=== PATIENT | female | born 1955 | race Hispanic/Latino ===

== ENCOUNTER → 2018-12-06 | Outpatient (CLI) | payer MEDICARE ==
[~2018-12-06] MED LIST: REGADENOSON 0.4 MG/5 ML SYR IV ONE
--- NOTE | 2018-12-07 18:33 | Myoview Stress Test ---
DATE OF STUDY: 12/06/2018 09:58:00 Stress Test - Treadmill ONLY STRESS SUMMARY: The patient underwent stress testing utilizing Lexiscan under the usual protocol. Baseline heart rate was 67 beats per minute and 88 beats per minute at stress. The patient's blood pressure was 135/82 at rest and decreased to 128/77 at peak stress. The patient into the protocol without any cardiac symptoms. ELECTROCARDIOGRAPHIC STRESS SUMMARY: The patient's 12-lead electrocardiogram showed normal sinus rhythm. There was no ST changes or arrhythmias noted throughout the stress protocol. MYOCARDIAL PERFUSION IMAGING: The patient received technetium-99m sestamibi at rest and stress. Both sets of images were normal. Gated images revealed ejection fraction greater than 70%. CONCLUSION: 1. Normal clinical, hemodynamic, and electrocardiogram stress test. 2. Normal myocardial perfusion imaging. 3. Normal left ventricular function with an estimated ejection fraction greater than 70%. DO KRYSTLA Becker/TRACY /[id number]
== END ==
LOC: NM 09:35 → EDBD 09:35
PROVIDERS: ATTEND Internal Medicine
DX: I25.118 Atherosclerotic heart disease of native coronary artery with other forms of angina pectoris (principal); R94.31 Abnormal electrocardiogram [ECG] [EKG]
CPT/HCPCS: 78452; 93017; A9502; J2785